=== PATIENT | male | born 1975 | race Hispanic/Latino ===

== ENCOUNTER 2024-01-06 17:04 | Emergency (ER) | payer OTHER ==
[~2024-01-06] VITALS: Ht 185.4 cm; Wt 130.7 kg
[2024-01-06] MEDS ORDERED: SYNTHROID75 MCG PO (17:21)
[2024-01-06] MEDS ORDERED: DIPHENHYDRAMINE25 M2 PO (18:24)
[2024-01-06] MEDS ORDERED: AZITHROMYCIN250 MG PO (18:24)
[2024-01-06] MEDS ORDERED: TYLENOL325 MG PO (18:24)
[2024-01-06] MEDS ORDERED: VENTOLIN HFA18 GM INH (18:24)
[2024-01-06 18:33] VITALS: PULSE 85; RESP 20; TEMP 98.4; O2SAT 94
== END 2024-01-06 18:33 | disposition home or self-care (01) ==
LOC: FSED 17:06
DX: U07.1 COVID-19 (principal); R00.0 Tachycardia, unspecified; E03.9 Hypothyroidism, unspecified
CPT/HCPCS: 0223U; 99283